=== PATIENT | female | born 1960 | race Caucasian/White ===

== ENCOUNTER 2021-10-30 21:09 | Emergency (ER) | payer OTHER ==
[~2021-10-30] VITALS: Ht 170.2 cm; Wt 105.2 kg
[2021-10-30 22:10] VITALS: BP 138/78
--- NOTE | 2021-10-30 22:10 | NUR ---
to tent ambulatory
[2021-10-30] MEDS ORDERED: DEXAMETHASONE 4 MG/ML VIAL IVP ONE (23:30)
[2021-10-30] MEDS ORDERED: KETOROLAC 30 MG/ML VIAL IVP ONE (23:30)
[2021-10-30] MEDS ORDERED: NACL 0.9% 1,000 ML IV ONE (23:30)
[2021-10-30] MEDS ORDERED: CHOL5000 PO (23:40)
[2021-10-30] MEDS ORDERED: DEC4 PO (23:40)
[2021-10-30] MEDS ORDERED: IVER3TAB2 PO (23:40)
[2021-10-30] MEDS ORDERED: ZINC50TA76 PO (23:40)
[2021-10-31] MEDS ORDERED: MORPHINE SULFATE 4 MG/ML SYR IVP ONE (01:00)
[2021-10-31 01:13] VITALS: BP 138/78
--- NOTE | 2021-10-31 01:14 | NUR ---
Patient discharged with v/s stable. Written and verbal after care instructions given and explained. Patient verbalized understanding. Ambulatory with steady gait. All questions addressed prior to discharge. Advised to follow up with PMD.
== END 2021-10-31 00:55 | disposition home or self-care (01) ==
LOC: MED 21:09
DX: U07.1 COVID-19 (principal)
CPT/HCPCS: 96361; 96374; 96375; 99284; J1100; J1885; J7030